=== PATIENT | female | born 1960 | race Caucasian/White ===

== ENCOUNTER 2019-11-04 21:28 | Emergency (ER) | payer BC, OTHER ==
[2019-11-04] MEDS ORDERED: Tetracaine 0.5% OPTH.SOL 4 ML* 1 DROP BTL LEFT EYE ONE (22:04)
[2019-11-04] MEDS ORDERED: Fluorescein Sodium TOPICAL* 1 MG TEST STRIP OPHTHALMIC ONE (22:05)
--- NOTE | 2019-11-04 22:24 | ED ---
Throat Pain/Nasal Congestion - HPI Summary HPI Summary: This patient is a 59 year old F presenting to [facility] accompanied by with a chief complaint of scratched left eye since 45 minutes ago. Her puppy got over excited and scratched her Left eye. When she was initially scratched there was blood in eye; there is currently only very minimal tearing. Pt reports mildly blurred vision which clears sometimes if she blinks. The patient rates the pain as sore, but livable. Pt has PMHx of diabetes, and HTN. Patient denies nausea. - History of Current Complaint Chief Complaint: EDEyeProblem Time Seen by Provider: 11/04/19 21:57 Hx Obtained From: Patient Onset/Duration: Sudden Onset, Still Present Severity: Moderate Associated Signs And Symptoms: Positive: Negative Cough: None - Allergies/Home Medications Allergies/Adverse Reactions: Allergies Allergy/AdvReac Type Severity Reaction Status Date / Time morphine Allergy Severe Fever, Verified 11/04/19 21:34 nausea Sulfa (Sulfonamide Allergy Severe Fever, rash Verified 11/04/19 21:34 Antibiotics) lisinopril Allergy Intermediate choking Verified 11/04/19 21:34 codeine Allergy Mild Headache Verified 11/04/19 21:34 PMH/Surg Hx/FS Hx/Imm Hx Endocrine/Hematology History: Reports: Hx Diabetes Denies: Hx Thyroid Disease Cardiovascular History: Denies: Hx Hypertension Respiratory History: Reports: Hx Asthma Denies: Hx Chronic Obstructive Pulmonary Disease (COPD) GI History: Denies: Hx Ulcer Sensory History: Denies: Hx Contacts or Glasses Opthamlomology History: Denies: Hx Contacts or Glasses - Cancer History Hx Chemotherapy: No Hx Radiation Therapy: No - Surgical History Surgery Procedure, Year, and Place: GASTRIC BYPASS 2007. RIGHT AND LEFT KNEE REPLACEMENTS 2005 Infectious Disease History: No Infectious Disease History: Denies: Hx Hepatitis, Hx Human Immunodeficiency Virus (HIV), Traveled Outside the [place] in Last 30 Days - Family History Known Family History: Negative: Blood Disorder - Social History Lives: With Family Alcohol Use: Occasionally Substance Use Type: Reports: None Hx Tobacco Use: Yes Smoking Status (MU): Former Smoker Review of Systems Positive: Blurred Vision, Drainage Negative: Nausea All Other Systems Reviewed And Are Negative: Yes - Comments Additional Review of Systems Comments: Home Medications Medication Instructions Recorded Confirmed Type Albuterol HFA INHALER* [Ventolin 1 - 2 puff INH Q6H PRN 02/11/19 04/20/19 History HFA Inhaler*] Calcium Carbonate/Vitamin D3 1 tab PO DAILY 02/11/19 05/02/19 History [Calcium 600 + Vit D Tablet] Citalopram TAB* [CeleXA TAB*] 10 mg PO BEDTIME 02/11/19 05/02/19 History Cyclobenzaprine TAB* [Flexeril 10 5 - 10 mg PO TID PRN 02/11/19 04/20/19 History MG TAB*] Ergocalciferol (Vitamin D2) 2,000 unit SL DAILY 02/11/19 05/02/19 History [Vitamin D2] Fluconazole 150 MG TAB* [Diflucan 150 mg PO ONCE PRN 02/11/19 04/20/19 History 150 MG TAB*] Hydrochlorothiazide TAB* 12.5 mg PO DAILY 02/11/19 04/20/19 History [Hydrodiuril TAB*] LORazepam TAB(*) [Ativan 0.5 MG 0.5 - 1 mg PO TID PRN 02/11/19 04/20/19 History TAB (*)] Losartan Potassium 100 mg PO DAILY 02/11/19 04/20/19 History Meclizine HCl 25 mg PO Q6H PRN 02/11/19 04/20/19 History Multivitamins/Minerals TAB* 1 tab PO DAILY 02/11/19 05/02/19 History [Theragran/minerals TAB*] Physical Exam - Summary Physical Exam Summary: General: Well-developed, Well-nourished Female. No acute distress. HEENT: Normocephalic, Atraumatic. Eyes: PERRL, , EOMI, superficial hemorrhage in L lateral eye conjunctiva. iris and pupil are spared; fundoscopic exam with no papilledema, anterior chamber negative bulging, on fluorescein exam no take up. Oropharynx: Clear, mucous membranes moist, (-) exudates. Neck: Soft, FROM, (-) lymphadenopathy, (-) thyromegaly, (-) JVD. Cardiovascular: Normal sinus rhythm, (-) murmur. Lungs: Clear to auscultation bilaterally (-) wheezes, (-) rales, (-) rhonchi. Abdomen: Soft, non-tender, non-distended, (-) organomegaly, normal bowel sounds. Back: (-) CVA tenderness Extremities: No edema. Skin: Warm, dry, (-) rash. Neuro: Alert and oriented x3, no focal deficits. Psychiatric: Mood normal, affect normal. Triage Information Reviewed: Yes Vital Signs On Initial Exam: Initial Vitals Temp Pulse Resp BP Pulse Ox 98.1 F 77 16 197/105 95 11/04/19 21:31 11/04/19 21:31 11/04/19 21:31 11/04/19 21:31 11/04/19 21:31 Vital Signs Reviewed: Yes Procedures - Sedation Patient Received Moderate/Deep Sedation with Procedure: No Diagnostics - Vital Signs Vital Signs Temp Pulse Resp BP Pulse Ox 11/04/19 21:31 98.1 F 77 16 197/105 95 - Laboratory Lab Statement: Any lab studies that have been ordered have been reviewed, and results considered in the medical decision making process. EENT Course/Dx - Course Course Of Treatment: 59-year-old female presents with injury to the left eye. She states her puppy scratch her just prior to arrival. She has some obvious left lateral blood over her conjunctiva. Mild blurry vision complaints. History and physical demonstrates no red flags. Patient hasn't tetracaine to anesthetize the eye, fluorescein staining was no obvious uptake. Patient discharged with Tylenol hemorrhage. Started on erythromycin ointment. Follow up with eye doctor on Wednesday. Follow up sooner for any worsening symptoms. - Diagnoses Provider Diagnoses: Conjunctival hemorrhage Discharge ED - Sign-Out/Discharge Documenting (check all that apply): Patient Departure - Discharge - Discharge Plan Condition: Stable Disposition: HOME Patient Education Materials: Eye Foreign Body (ED) Referrals: Jailene Corcoran, [employer] [Primary Care Provider] - Additional Instructions: Follow up with carcass splitter on 11/06/19. Follow up sooner for worsening pain, vision, or vomiting - Billing Disposition and Condition Condition: STABLE Disposition: Home - Attestation Statements Document Initiated by Scribe: Yes Documenting Scribe: Chrissie Bal Provider For Whom Scribe is Documenting (Include Credential): Dr. Leslie Cárdenas MD Scribe Attestation: Chrissie Coe scribed for Dr. Leslie Cárdenas MD on 11/08/19 at 2328. Scribe Documentation Reviewed: Yes Provider Attestation: The documentation as recorded by the scribe, Chrissie Bal accurately reflects the service I personally performed and the decisions made by me, Dr. Leslie Cárdenas MD Status of Scribe Document: Viewed
[2019-11-04 22:39] VITALS: BP 183/85
[2019-11-05] MEDS ORDERED: Erythromycin OPTH OINT* APPLIC OINT LEFT EYE SCH (09:00)
== END 2019-11-04 22:33 | disposition home or self-care (01) ==
LOC: ED 21:28
DX: H11.32 Conjunctival hemorrhage, left eye (principal); W54.1XXA Struck by dog, initial encounter; Y92.9 Unspecified place or not applicable; E11.9 Type 2 diabetes mellitus without complications; I10 Essential (primary) hypertension; Z87.891 Personal history of nicotine dependence; Z98.84 Bariatric surgery status; Z96.653 Presence of artificial knee joint, bilateral; Z79.899 Other long term (current) drug therapy; Z88.5 Allergy status to narcotic agent; Z88.2 Allergy status to sulfonamides; Z88.8 Allergy status to other drugs, medicaments and biological substances
CPT/HCPCS: 99282; A9270-GY